=== PATIENT | female | born 1975 | race Caucasian/White ===

== ENCOUNTER 2021-03-09 15:47 | Outpatient (CLI) | payer OTHER ==
--- NOTE | 2021-03-10 12:14 | Mammography Report ---
BILATERAL DIGITAL SCREENING MAMMOGRAM 3D/2D: 03/09/2021 CLINICAL: Routine screening. Baseline exam. No prior exams were available for comparison. The tissue of both breasts is heterogeneously dense. T his may lower the sensitivity of mammography. There is a possible 0.9 cm oval equal density asymmetry in the left breast posterior depth superior r egion seen on the mediolateral oblique view only 14 cm from the nipple. There also is a 0.8 cm x 3 cm oval equal density mass in the left breast at 6 o'clock anterior depth. No other significant masses, calcifications, or other findings are seen in either breast. IMPRESSION: INCOMPLETE: NEEDS ADDITIONAL IMAGING EVALUATION The possible 0.9 cm oval equal density asymmetry in the left breast posterior depth superior region s een on the mediolateral oblique view only is indeterminate. Additional views with possible ultrasoun d are recommended. The 0.8 cm x 3 cm oval equal density mass in the left breast at 6 o'clock anterior depth resembles a cyst or focally dilated duct and is indeterminate. Additional views with possible ultrasound are rec ommended. This exam was interpreted at Station ID: [id number]. NOTE: For mammograms, a report in lay terms will be sent to the patient. Approximately 15% of breast malignancies will not be visualized mammographically. In the management of a palpable breast mass, a negative mammogram must not discourage biopsy of a clinically suspicious lesion. Electronically Signed By: Carlton Romeo M.D. aty/:03/09/2021 16:31:59 ACR BI-RADS Category 0: Incomplete 3340F PARENCHYMAL PATTERN: (D) - The breast(s) demonstrate(s) heterogeneously dense fibroglandular [place]. BI-RADS CATEGORY: (0) - 0 Mammo and [place] [id number] Immediate follow-up LATERALITY: (L)
== END 2021-03-09 15:48 | disposition home or self-care (01) ==
LOC: DI.N 15:47
DX: Z12.31 Encounter for screening mammogram for malignant neoplasm of breast (principal); R92.8 Other abnormal and inconclusive findings on diagnostic imaging of breast; N63.25 Unspecified lump in the left breast, overlapping quadrants

== ENCOUNTER 2021-03-29 08:00 | Outpatient (CLI) | payer OTHER ==
[2021-03-29 17:59] LABS: BASOPHILS % (AUTO) 0.4 %; EOSINOPHILS # (AUTO) 0.2 10^3/uL (0.0-0.7); EOSINOPHILS % (AUTO) 2.2 %; HCT - HEMATOCRIT 40.8 % (37.0-47.0); HGB - HEMOGLOBIN 12.4 g/dL (12.0-16.0); LYMPHOCYTES # (AUTO) 1.8 10^3/uL (1.5-3.5); LYMPHOCYTES % (AUTO) 23.6 %; MEAN CORPUSCULAR HEMOGLOBIN 24.8 pg (27.0-31.0); MEAN CORPUSCULAR HGB CONC 30.4 g/dL (32.0-36.0); MEAN CORPUSCULAR VOLUME 81.6 fL (81.0-99.0); MEAN PLATELET VOLUME 11.6 fL (7.9-10.8); MONOCYTES # (AUTO) 0.3 10^3/uL (0.0-1.0); MONOCYTES % (AUTO) 4.3 %; NEUTROPHILS # (AUTO) 5.3 10^3/uL (1.5-6.6); NEUTROPHILS % (AUTO) 69.2 %; PLT - PLATELET COUNT 319 10^3/uL (130-450); RED CELL DISTRIBUTION WIDTH 15.9 % (12.0-15.0); WHITE BLOOD COUNT 7.6 x10^3/uL (4.8-10.8)
[2021-03-29 18:14] LABS: ALBUMIN 4.4 g/dL (3.2-5.5); ALBUMIN/GLOBULIN RATIO 1.1 (1.0-2.2); ALKALINE PHOSPHATASE 72 IU/L (42-121); ALT ALANINE AMINOTRANSFERASE 15 IU/L (10-60); AST ASPARTATE AMINOTRANSFERASE 15 IU/L (10-42); BILIRUBIN,TOTAL 0.3 mg/dL (0.2-1.0); BUN - BLOOD UREA NITROGEN 16 mg/dL (6-20); CARBON DIOXIDE - CO2 25 mmol/L (21-32); CHLORIDE 107 mmol/L (101-111); CHOL/HDL RATIO 3.7 (<4.4); CHOLESTEROL 162 mg/dL; CREATININE 0.8 mg/dL (0.4-1.0); GFR - MDRD 78 (>89); GLUCOSE 101 mg/dL (70-100); HDL CHOLESTEROL 44 mg/dL; LDL CHOLESTEROL,CALCULATED 95 mg/dL; LDL/HDL RATIO 2.2 (<4.4); POTASSIUM 4.1 mmol/L (3.5-5.0); SODIUM 143 mmol/L (135-145); TOTAL PROTEIN 8.4 g/dL (6.7-8.2); TRIGLYCERIDES 113 mg/dL; VLDL CHOLESTEROL 23 mg/dL
[2021-03-29 18:22] LABS: THYROID STIMULATING HORMONE 1.48 uIU/mL (0.34-5.60)
== END 2021-03-29 23:59 | disposition home or self-care (01) ==
LOC: LAB.WCP 08:00
PROVIDERS: ATTEND Physician Assistant Medical
DX: Z00.00 Encounter for general adult medical examination without abnormal findings (principal)
CPT/HCPCS: 36415; 80053; 80061; 83721; 84443; 85025

== ENCOUNTER 2021-04-22 12:38 | Outpatient (CLI) | payer OTHER ==
--- NOTE | 2021-04-23 09:27 | Mammography Report ---
UNILATERAL LEFT DIGITAL DIAGNOSTIC MAMMOGRAM 3D/2D: 04/22/2021 CLINICAL: Patient returns today to evaluate an asymmetry in the left breast. Comparison is made to exam dated: [facility] The tissue of left breast is heterogeneously dense. This may lower the sensitivity of mammography. There is an oval equal density asymmetry with an indistinct margin in the left breast posterior depth superior region seen on the mediolateral oblique view only. This is less prominent. There also is a 0.8 cm oval equal density mass with an obscured and circumscribed margin in the left breast at 6 o'clock anterior depth. No other significant masses or calcifications are seen in the breast. IMPRESSION: INCOMPLETE: NEEDS ADDITIONAL IMAGING EVALUATION The oval equal density asymmetry in the left breast posterior depth superior region seen on the medio lateral oblique view only is indeterminate. An ultrasound is recommended. The 0.8 cm oval equal density mass in the left breast at 6 o'clock anterior depth is indeterminate. An ultrasound is recommended. Ultrasound will be performed immediately following the current exam. This exam was interpreted at Station ID: [id number]. NOTE: For mammograms, a report in lay terms will be sent to the patient. Approximately 15% of breast malignancies will not be visualized mammographically. In the management of a palpable breast mass, a negative mammogram must not discourage biopsy of a clinically suspicious lesion. Electronically Signed By: Heladio Linares M.D. ddp/:04/22/2021 13:33:47 ACR BI-RADS Category 0: Incomplete 3340F PARENCHYMAL PATTERN: (D) - The breast(s) demonstrate(s) heterogeneously dense fibroglandular [place]. BI-RADS CATEGORY: (0) - 0 Ultrasound [id number] Immediate follow-up LATERALITY: (B)
--- NOTE | 2021-04-23 09:27 | Ultrasound Report ---
LIMITED ULTRASOUND OF LEFT BREAST: 04/22/2021 CLINICAL: Patient returns today to evaluate a focal asymmetry in the left breast. Comparison is made to exams dated: 04/22/2021 mammogram and 03/09/2021 mammogram - [facility]. Color flow ultrasound of the left breast 12-3 o'clock and 5 o'clock regions was performed on the are as of interest. Xavier scale images of the real-time examination were reviewed. There is a 0.8 cm x 0.5 cm x 0.8 cm oval cyst with a septated internal wall in the left breast at 5 o 'clock anterior depth 3 cm from the nipple. This oval cyst is hypoechoic with a well-defined boundar y and posterior acoustic enhancement. This correlates with mammography findings. Color flow imaging demonstrates that there is no vascularity present. No discrete cystic or solid mass lesion identified in the area of mammographic abnormality in the pos terior upper outer quadrant. IMPRESSION: PROBABLY BENIGN The 0.8 cm x 0.5 cm x 0.8 cm oval cyst in the left breast is consistent with a complicated cyst and i s probably benign. Follow-up mammogram and ultrasound in 6 months are recommended. There is no abnormality seen in the left breast to correspond with the mammography finding in the pos terior depth in the upper outer quadrant. A follow-up mammogram and a possible ultrasound in 6 month s are recommended to demonstrate stability. This exam was interpreted at Station ID: [id number]. Electronically Signed By: Heladio Linares M.D. ddp/:04/22/2021 14:20:16 Ultrasound BI-RADS: 3 Probably benign BI-RADS CATEGORY: (3) - 3 Mammo and [place] [id number] 6 month follow-up LATERALITY: (B)
== END 2021-04-22 12:39 | disposition home or self-care (01) ==
LOC: DI 12:38
PROVIDERS: ATTEND Physician Assistant Medical
DX: R92.8 Other abnormal and inconclusive findings on diagnostic imaging of breast (principal); N60.02 Solitary cyst of left breast

== ENCOUNTER 2022-01-25 11:03 | Outpatient (CLI) | payer OTHER ==
--- NOTE | 2022-01-27 15:36 | Mammography Report ---
BILATERAL DIGITAL DIAGNOSTIC MAMMOGRAM 3D/2D WITH EXAGGERATED CC LATEROMEDIAL: 01/25/2022 CLINICAL: Patient returns for a 6 month follow up of the left breast, due for bilateral exam. Comparison is made to exams dated: 04/22/2021 mammogram, 03/09/2021 mammogram, and 04/22/2021 ultraso [facility]. The tissue of both breasts is heterogeneously dense. This may lo wer the sensitivity of mammography. There is an asymmetry in the left breast posterior depth superior region seen on the mediolateral obl ique view only. This is less prominent and was not seen on the prior ultrasound. There also is a stable oval focal asymmetry with an obscured margin in the left breast at 6 o'clock a nterior depth. No other significant masses, calcifications, or other findings are seen in either breast. IMPRESSION: INCOMPLETE: NEEDS ADDITIONAL IMAGING EVALUATION The asymmetry in the left breast posterior depth is indeterminate. The stable oval focal asymmetry in the left breast at 6 o'clock anterior depth is indeterminate. A targeted ultrasound is recommended and will immediately follow. Based on the Tyrer Cuzick model (a risk assessment model) the patients lifetime risk is 14.3% and he r 10 year risk is 2.6%. According to the ACR, ACS, and NCCN guidelines, an annual breast MRI exam donna ng with mammogram is recommended if the patients lifetime risk is 20% or greater. This exam was interpreted at Station ID: [id number]. NOTE: For mammograms, a report in lay terms will be sent to the patient. Approximately 15% of breast malignancies will not be visualized mammographically. In the management of a palpable breast mass, a negative mammogram must not discourage biopsy of a clinically suspicious lesion. Electronically Signed By: Zachary Lin M.D. [facility] [place]:01/27/2022 15:26:23 ACR BI-RADS Category 0: Incomplete 3340F PARENCHYMAL PATTERN: (D) - The breast(s) demonstrate(s) heterogeneously dense fibroglandular parenchy ma. BI-RADS CATEGORY: (0) - 0 Ultrasound [id number] Immediate follow-up LATERALITY: (B)
--- NOTE | 2022-01-27 15:36 | Ultrasound Report ---
LIMITED ULTRASOUND OF LEFT BREAST: 01/25/2022 CLINICAL: 6 month follow-up of cyst. Comparison is made to exams dated: 01/25/2022 mammogram, 04/22/2021 ultrasound, 04/22/2021 mammogram, and 03/09/2021 mammogram - [facility]. Color flow and real-time ultrasound of the left breast 5 o'clock and 12 o'clock regions were performe d. Xavier scale images of the real-time examination were reviewed. There is a benign 0.8 cm x 0.8 cm x 0.6 cm oval cyst in the left breast at 5 o'clock anterior depth 3 cm from the nipple. This oval cyst is anechoic. This correlates with mammography findings. Color flow imaging demonstrates that there is no vascularity present. There also is a mass in the left breast at 12 o'clock posterior depth. IMPRESSION: PROBABLY BENIGN There is no sonographic evidence of malignancy. The 0.8 cm simple cyst in the left breast at 5 o'clock anterior depth is benign. No cyst or mass is identified in the region of asymmetry seen on mammogram. -A follow-up mammogram in 12 months is recommended to demonstrate long-term stability. This exam was interpreted at Station ID: [id number]. Electronically Signed By: Zachary Lin M.D. slc/:01/27/2022 15:28:59 Ultrasound BI-RADS: 3 Probably benign BI-RADS CATEGORY: (3) - 3 Mammogram [id number] 12 month follow-up LATERALITY: (B)
== END 2022-01-25 11:04 | disposition home or self-care (01) ==
LOC: DI 11:03
PROVIDERS: ATTEND Physician Assistant Medical
DX: R92.8 Other abnormal and inconclusive findings on diagnostic imaging of breast (principal); N60.02 Solitary cyst of left breast

== ENCOUNTER 2023-05-04 12:31 | Outpatient (CLI) | payer OTHER ==
[2023-05-04 17:59] LABS: BASOPHILS % (AUTO) 0.5 %; EOSINOPHILS # (AUTO) 0.2 10^3/uL (0.0-0.7); HCT - HEMATOCRIT 39.1 % (37.0-47.0); LYMPHOCYTES # (AUTO) 2.4 10^3/uL (1.5-3.5); LYMPHOCYTES % (AUTO) 39.8 %; MEAN CORPUSCULAR HEMOGLOBIN 24.6 pg (27.0-31.0); MEAN CORPUSCULAR HGB CONC 30.7 g/dL (32.0-36.0); MEAN CORPUSCULAR VOLUME 80.3 fL (81.0-99.0); MEAN PLATELET VOLUME 10.8 fL (7.9-10.8); MONOCYTES # (AUTO) 0.3 10^3/uL (0.0-1.0); MONOCYTES % (AUTO) 4.7 %; NEUTROPHILS # (AUTO) 3.1 10^3/uL (1.5-6.6); NEUTROPHILS % (AUTO) 50.8 %; PLT - PLATELET COUNT 320 10^3/uL (130-450); RED BLOOD COUNT 4.87 10^6/uL (4.20-5.40)
[2023-05-04 18:28] LABS: THYROID STIMULATING HORMONE 1.21 uIU/mL (0.34-5.60)
[2023-05-04 18:30] LABS: ALBUMIN 4.3 g/dL (3.2-5.5); ALBUMIN/GLOBULIN RATIO 1.3 (1.0-2.2); ALKALINE PHOSPHATASE 60 IU/L (42-121); ALT ALANINE AMINOTRANSFERASE 14 IU/L (10-60); AST ASPARTATE AMINOTRANSFERASE 14 IU/L (10-42); BILIRUBIN,TOTAL 0.3 mg/dL (0.2-1.0); BUN - BLOOD UREA NITROGEN 17 mg/dL (6-20); CALCIUM 9.4 mg/dL (8.5-10.3); CARBON DIOXIDE - CO2 24 mmol/L (21-32); CHLORIDE 108 mmol/L (101-111); CHOL/HDL RATIO 3.2 (<4.4); CHOLESTEROL 159 mg/dL; CREATININE 0.6 mg/dL (0.6-1.3); GFR - MDRD 107 (>89); GLUCOSE 89 mg/dL (74-104); HDL CHOLESTEROL 50 mg/dL; LDL CHOLESTEROL,CALCULATED 98 mg/dL; POTASSIUM 3.9 mmol/L (3.5-4.5); SODIUM 138 mmol/L (135-145); TOTAL PROTEIN 7.6 g/dL (6.4-8.9); TRIGLYCERIDES 55 mg/dL (48-352); VLDL CHOLESTEROL 11 mg/dL
== END 2023-05-04 12:32 | disposition home or self-care (01) ==
LOC: LAB.N 12:31
PROVIDERS: ATTEND Physician Assistant Medical
DX: G47.11 Idiopathic hypersomnia with long sleep time (principal); Z79.899 Other long term (current) drug therapy; I89.0 Lymphedema, not elsewhere classified; G25.0 Essential tremor; Z13.220 Encounter for screening for lipoid disorders
CPT/HCPCS: 36415; 80053; 80061; 83721; 84443; 85025